=== PATIENT | male | born 1965 | race Caucasian/White ===

== ENCOUNTER → 2022-07-02 | Outpatient (CLI) | payer OTHER | END | disposition home or self-care (01) | LOC: RESCLI 13:35 | PROVIDERS: ATTEND Internal Medicine | DX: G25.3 Myoclonus (principal); I25.10 Atherosclerotic heart disease of native coronary artery without angina pectoris; G90.A Postural orthostatic tachycardia syndrome [POTS]; G62.9 Polyneuropathy, unspecified; I10 Essential (primary) hypertension; Z86.74 Personal history of sudden cardiac arrest; G47.419 Narcolepsy without cataplexy; N31.9 Neuromuscular dysfunction of bladder, unspecified; G93.1 Anoxic brain damage, not elsewhere classified; G47.31 Primary central sleep apnea; M46.1 Sacroiliitis, not elsewhere classified; E78.2 Mixed hyperlipidemia; Z88.8 Allergy status to other drugs, medicaments and biological substances; Z88.5 Allergy status to narcotic agent; Z98.890 Other specified postprocedural states; Z90.49 Acquired absence of other specified parts of digestive tract; Z79.82 Long term (current) use of aspirin; Z79.899 Other long term (current) drug therapy ==